=== PATIENT | female | born 1995 | race Caucasian/White ===

== ENCOUNTER 2018-02-04 17:16 | Emergency (ER) | payer BC, OTHER ==
[~2018-02-04] VITALS: Ht 154.9 cm; Wt 45.4 kg
[2018-02-04 17:26] VITALS: BP 126/70
== END 2018-02-04 18:08 | disposition left against medical advice (07) ==
LOC: ER 17:16
DX: N64.4 Mastodynia (principal); Z53.21 Procedure and treatment not carried out due to patient leaving prior to being seen by health care provider

== ENCOUNTER 2021-01-26 04:31 | Emergency (ER) | payer MEDICAID, OTHER ==
[~2021-01-26] VITALS: Ht 154.9 cm; Wt 49.9 kg
[2021-01-26 04:32] VITALS: BP 133/78
== END 2021-01-26 05:04 | disposition left against medical advice (07) ==
LOC: ER 04:31
DX: H92.01 Otalgia, right ear (principal); Z53.21 Procedure and treatment not carried out due to patient leaving prior to being seen by health care provider

== ENCOUNTER 2025-01-25 20:28 | Emergency (ER) | payer MEDICAID ==
[~2025-01-25] VITALS: Ht 154.9 cm; Wt 46.2 kg
--- NOTE | 2025-01-25 20:55 | ED.PDOC ---
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 Last week, patient s tarted having lower abdominal cramps followed by passage of blood clots(?). Bleeding would stop spontaneously and patient would be asymptomatic until few hours ago when patient would develop vaginal bleeding again (regular menstrual cycle ?) Chief Complaint: Vaginal Bleed Time Seen by MD: 20:54 Reviewed Notes: Nurses Notes Allergies: Coded Allergies: Sulfa Antibiotics (Verified Allergy, Unknown, 01/25/25) Information Source: Patient Mode of Arrival: Ambulatory Timing: Hours Bleeding Quality: Bright Red, Clotted Review of Systems REVIEW OF SYSTEMS: No fever, no chills, or fatigue HEENT: No sore throat, no earache, no congestion, no neck pain. Cardiac: No chest pain. No palpitations. Lungs: No shortness of breath, no cough. GI: No nausea, no vomiting, no diarrhea, no constipation, no abdominal pain : No dysuria, frequency, or urgency. No hematuria. (+) vaginal bleeding Musculoskeletal: No joint pain , no joint swelling, no extremity edema. Skin: No rash, no itching. Neuro: No headache, no dizziness, no weakness Vital Signs Vital Signs Date Time Temp Pulse Resp B/P (MAP) Pulse Ox O2 Delivery O2 Flow Rate FiO2 01/25/25 23:00 98.0 74 18 95/57 (70) 96 98.0 Physical Exam General: Awake, alert and oriented. No acute distress. Skin: Skin in warm, dry and intact. Appropriate color for ethnicity. Nailbeds pink with no cyanosis. HEENT: The head is normocephalic and atraumatic. Conjunctivae are clear without exudates or hemorrhage. Sclera is non-icteric. EOM are intact. No signs of nystagmus. Eyelids are normal in appearance without swelling or lesions. Oral mucosa is pink and moist Neck: The neck is supple with normal range of motion. No JVD. Cardiac: Heart rate and rhythm are normal. No murmurs, gallops, or rubs are auscultated. Respiratory: No signs of respiratory distress. Lung sounds are clear in all lobes bilaterally without rales, ronchi, or wheezes. Abdominal: Abdomen is soft, non-tender without distention. Bowel sounds are present and normoactive in all four quadrants. No CVA tenderness : Deferred Extremities: Upper and lower extremities are atraumatic in appearance without deformity or edema. Neurological: The patient is awake, alert and oriented to person, place, and time with normal speech. Speech is clear. There is no facial asymmetry. Psychiatric: Appropriate mood and affect. Good judgement and insight. No visual or auditory hallucinations. 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 Was a procedure done?: No Differential Diagnosis (SUPERVISOR [employer]ESS[employer]) Vaginal Bleeding: Blood Loss Anemia, Hormonal, Menorrhagia, Menometrorrhagia, Menstrual Bleeding, UTI X-Ray, Labs, Meds, VS Vital Signs Date Time Temp Pulse Resp B/P (MAP) Pulse Ox O2 Delivery O2 Flow Rate FiO2 01/25/25 23:00 98.0 74 18 95/57 (70) 96 98.0 01/25/25 20:36 97.9 111 16 112/75 (87) 99 Lab Test 01/25/25 20:54 01/25/25 20:42 Range/Units White Blood Count 8.5 4.4-10.8 10^3/uL Red Blood Count 4.75 4.0-5.20 10^6/uL Hemoglobin 13.9 12.2-16.2 g/dL Hematocrit 41.5 36.0-46.0 % Mean Corpuscular Volume 87.3 80.0-100.0 fL Mean Corpuscular Hemoglobin 29.2 28.0-32.0 pg Mean Corpuscular Hemoglobin Concent 33.4 32.0-36.0 g/dL Red Cell Distribution Width 12.9 11.8-14.3 % Platelet Count 396 140-450 10^3/uL Mean Platelet Volume 7.2 6.9-10.8 fL Neutrophils (%) (Auto) 65.2 37.0-80.0 % Lymphocytes (%) (Auto) 25.4 10.0-50.0 % Monocytes (%) (Auto) 6.7 0.0-12.0 % Eosinophils (%) (Auto) 2.0 0.0-7.0 % Basophils (%) (Auto) 0.7 0.0-2.0 % Neutrophils # (Auto) 5.5 1.6-8.6 10 ^3/uL Lymphocytes # (Auto) 2.2 0.4-5.4 10 ^3/uL Monocytes # (Auto) 0.6 0-1.3 10 ^3/uL Eosinophils # (Auto) 0.2 0-0.8 10 ^3/uL Basophils # (Auto) 0.1 0-0.2 10 ^3/uL Nucleated Red Blood Cells 0.1 % Sodium Level 140 136-145 mmol/L Potassium Level 3.9 3.5-5.1 mmol/L Chloride Level 104 98-107 mmol/L Carbon Dioxide Level 27 20-31 mmol/L Anion Gap 9 5-15 Blood Urea Nitrogen 6 L 9-23 mg/dL Creatinine 0.54 L 0.550-1.02 mg/dL Glomerular Filtration Rate Calc 127 >90 mL/min BUN/Creatinine Ratio 11.1 10.0-20.0 Serum Glucose 84 74-106 mg/dL Calcium Level 10.2 8.7-10.4 mg/dL Total Bilirubin 0.4 0.2-1.0 mg/dL Aspartate Amino Transferase (AST) 36 13-40 U/L Alanine Aminotransferase (ALT) 52 H 7-40 U/L Alkaline Phosphatase 63 46-116 U/L Total Protein 6.9 5.7-8.2 g/dL Albumin 4.4 3.2-4.8 g/dL Beta HCG, Quantitative 1495.6 H 1.5-4.2 mIU/mL Urine Color Light-brown Yellow Urine Clarity Turbid H Clear Urine pH 6.0 5.0-9.0 Urine Specific [place] 1.015 1.001-1.035 Urine Protein Trace H Negative Urine Ketones Trace Negative Urine Blood 2+ H Negative /uL Urine Nitrite Negative Negative Urine Bilirubin Negative Negative Urine Urobilinogen 2 H Negative mg/dL Urine Leukocyte Esterase 3+ Negative /uL Urine RBC 37 0 - 4 /hpf Urine WBC Clumps Present None Seen /hpf Urine Microscopic WBC 112 H 0-5 /HPF Urine Squamous Epithelial Cells Few <5 /hpf Urine Bacteria Many H None Seen /hpf Urine Mucus Few None Seen Urine Glucose Normal Normal mg/dL Urine Test Positive Negative Time of 1ST Reevaluation: 20:50 Reevaluation 1ST: Unchanged Patient Education/Counseling: Diagnosis, Treatment Family Education/Counseling: No Family Present Departure 1 Departure Time of Disposition: 00:38 Impression: Primary Impression: of unknown anatomic location Additional Impressions: Elevated serum hCG Vaginal bleeding Disposition: HOME / SELF CARE / HOMELESS Condition: Stable Additional Instructions: ED DISCHARGE INSTRUCTIONS Instructions: Please read all instructions provided in this packet carefully. Although you have been discharged from the Emergency Department, this does not mean that you have a "clean bill of health". No definitive diagnosis for your symptoms has been made today. It is possible that you are in the process of developing a serious illness. This is why you must return to the ED without fail if any new or worsening symptoms (especially if your symptoms include lightheadedness, heavy bleeding, fever, weakness, chest pain, trouble breathing, severe abdominal pain, fever, headache, confusion, trouble seeing, or trouble walking) It is also very important that you see a marketing operations analyst or primary care doctor w marzenain the next 3-5 days to have another level checked. If you are unable to get an appointment, return to the ED for a repeat level and ultrasound in 3-5 days. What is PUL? of unknown location (PUL) is when you have a positive urine or blood test, and the cannot be seen on ultrasound. When you have a PUL, it must be found. Your care team will decide if it will grow safely. Why we cannot see it on ultrasound? It is too early to see A person is having a miscarriage There is an ectopic What is an ectopic ? It is a that started outside the uterus. This can be life threatening It is never normal You will need close follow up with: Ultrasounds Blood work Visits with your care team Ectopic pregnancies happen most often inside the fallopian tube. It can also be called a tubal . Other places they can be found are: The cervix A scar An ovary The abdomen 2 out of 100 pregnancies will be outside of the uterus (ectopic). The cannot carry on because: They can be life threatening Cannot be a viable Cannot be moved to the uterus When found early, some can be treated with a medicine called methotrexate. You may need a minor surgery to remove the or your fallopian tube. Caring for yourself at home Until the is found, you should: Get pelvic rest (do not douche, use tampons, or have sex). Not take ibuprofen, Motrin, aspirin, or other NSAID medicines Take acetaminophen (Tylenol) as needed. Drink lots of water Take your medicine unless told by your care team Do not wait until the clinic is open. Call right away or go to your emergency room if you have: Heavy vaginal bleeding (soaking through a pad in less than 1 hour) Abdominal pain that is severe or gets worse Lightheadedness or fainting Follow-up Close follow-up is needed for a PUL A blood test. This test is known as a serum beta human chorionic gonadotrophin (HCG). It may be called a qaunt Return to get your second HCG 48 hours after this visit. Your HCG level should go up by about 66% in that time if: the is normal it is growing in your uterus An ultrasound in 3 to 5 days You need to return to have tests done. Comments 29-year-old female who presented to the emergency department with vaginal bleeding as well as passing of some clots from the vagina 2 weeks ago. She started worsening mild pelvic pain and bleeding this started again yesterday. No intrauterine visualized on ultrasound. Beta hCG is approximately 1400. Discussed with patient that this is possibly a of unknown location or miscarriage. Patient does not have a marketing operations analyst or PCP, she is advised to return to the emergency department within the next few days for repea t hCG level she is unable to get an appointment. She is advised of other return precautions. Patient is well-appearing, nontoxic, hemodynamically stable. She is felt stable for discharge home and to return for follow up. Extensive evaluation was performed in attempt to identify or rule out: (See differential diagnosis section) The following tests were ordered, and results were reviewed by me: (See diagnostic results section) The following test were independently interpreted by me: N/A I reviewed and agreed with the following test results read by other providers: N/A I reviewed the following notes from the pt's past medical encounters: N/A Additional information was gathered from interviewing the following independent historians: N/A Discussion of management or test interpretation with external physician/other qualified health rn palliative care: N/A Decision regarding hospitalization or escalation of hospital level of care: Risks and benefits of admission for further treatment of patient's condition was considered however due to patient's stable condition patient will be discharged to follow up closely or return to care for worsening of condition or inability to follow up. Critical Care Note Critical Care Time?: No Stability Stability form required: No Heart Score Heart Score: Heart Score Response (Comments) Value History N/A 0 EKG N/A 0 Age N/A 0 Risk Factors N/A 0 Troponin N/A 0 Total 0 I personally scribed for KEY CORTEZ MD ([email or web address]) on 01/25/25 at 20:55. Electronically submitted by Wagner Morgan ([employer]). I personally scribed for KEY CORTEZ MD ([email or web address]) on 01/25/25 at 21:05. Electronically submitted by Wagner Morgan ([employer]). KEY CORTEZ MD Jan 25, 2025 20:55
[2025-01-25 21:07] LABS: Basophils # (auto) 0.1 10 ^3/uL (0-0.2); Basophils % (auto) 0.7 % (0.0-2.0); Eosinophils # (auto) 0.2 10 ^3/uL (0-0.8); Hematocrit 41.5 % (36.0-46.0); Hemoglobin 13.9 g/dL (12.2-16.2); Lymphocytes # (auto) 2.2 10 ^3/uL (0.4-5.4); Lymphocytes % (auto) 25.4 % (10.0-50.0); Mean Corpuscular Hemoglobin 29.2 pg (28.0-32.0); Mean Corpuscular Hgb Conc. 33.4 g/dL (32.0-36.0); Mean Corpuscular Volume 87.3 fL (80.0-100.0); Monocytes # (auto) 0.6 10 ^3/uL (0-1.3); Monocytes % (auto) 6.7 % (0.0-12.0); Neutrophils # (auto) 5.5 10 ^3/uL (1.6-8.6); Neutrophils % (auto) 65.2 % (37.0-80.0); Nucleated Red Blood Cells % 0.1 %; Platelet Count (auto) 396 10^3/uL (140-450); Red Blood Cells 4.75 10^6/uL (4.0-5.20); Red Cell Distribution Width 12.9 % (11.8-14.3); White Blood Cell 8.5 10^3/uL (4.4-10.8)
[2025-01-25 21:21] LABS: Albumin 4.4 g/dL (3.2-4.8); Alkaline Phosphatase 63 U/L (46-116); Anion Gap 9 (5-15); Aspartate Aminotransferase 36 U/L (13-40); BUN/Creatinine Ratio 11.1 (10.0-20.0); Calcium 10.2 mg/dL (8.7-10.4); Carbon Dioxide 27 mmol/L (20-31); Chloride 104 mmol/L (98-107); Glucose 84 mg/dL (74-106); Potassium 3.9 mmol/L (3.5-5.1); Sodium 140 mmol/L (136-145); Total Protein 6.9 g/dL (5.7-8.2)
[2025-01-25 21:22] LABS: Bilirubin, Total 0.4 mg/dL (0.2-1.0)
[2025-01-25 21:24] LABS: Alanine Aminotransferase 52 U/L (7-40); Blood Urea Nitrogen 6 mg/dL (9-23)
[2025-01-25 21:28] LABS: Urine Bacteria MANY /hpf (None Seen); Urine Blood 2+ /uL (Negative); Urine Clarity Turbid (Clear); Urine Color Light-Brown (Yellow); Urine Mucus FEW (None Seen); Urine Protein, UAD TRACE (Negative); Urine Specific Gravity 1.015 (1.001-1.035); Urine Squamous Epithelial Cell FEW /hpf (<5); Urine Urobilinogen 2 mg/dL (Negative); Urine WBC 112 /HPF (0-5); Urine WBC Clumps PRESENT /hpf (None Seen)
[2025-01-25 23:00] VITALS: TEMP 98
--- NOTE | 2025-01-26 00:20 | DVH ---
OB ULTRASOUND <14 WEEKS: HISTORY: Pelvic Pain TECHNIQUE: Multiple real-time grayscale sonographic images of the pelvis with duplex Doppler color f low, spectral and M-mode analysis. TRANSDUCERS: TA (pateint denies TV exam) FINDINGS: The uterus measures 6 x 4 x 5 The cervix was not seen . Endometrial stripe measures 1.8 mm. Bilateral ovaries not visualized. IMPRESSION: No IUP noted. Please correlate with serial beta hCGs.
[2025-01-26 00:55] VITALS: BP 103/62; PULSE 85; RESP 16; O2SAT 99
== END 2025-01-26 01:00 | disposition home or self-care (01) ==
LOC: ER 20:28
DX: N93.9 Abnormal uterine and vaginal bleeding, unspecified (principal); R10.2 Pelvic and perineal pain; Z88.2 Allergy status to sulfonamides; Z32.01 Encounter for pregnancy test, result positive
CPT/HCPCS: 36415; 76801; 80053; 81001; 81025; 84702; 85025; 86850; 86900; 86901

== ENCOUNTER 2025-02-03 19:44 | Emergency (ER) | payer MEDICAID ==
[~2025-02-03] VITALS: Ht 154.9 cm; Wt 48.7 kg
[2025-02-03 20:47] LABS: Basophils # (auto) 0 10 ^3/uL (0-0.2); Basophils % (auto) 0.2 % (0.0-2.0); Eosinophils # (auto) 0.3 10 ^3/uL (0-0.8); Eosinophils % (auto) 2.9 % (0.0-7.0); Hematocrit 41.9 % (36.0-46.0); Hemoglobin 13.9 g/dL (12.2-16.2); Lymphocytes % (auto) 32.7 % (10.0-50.0); Mean Corpuscular Hemoglobin 29.2 pg (28.0-32.0); Mean Corpuscular Hgb Conc. 33.3 g/dL (32.0-36.0); Mean Corpuscular Volume 87.6 fL (80.0-100.0); Monocytes # (auto) 0.6 10 ^3/uL (0-1.3); Monocytes % (auto) 6.1 % (0.0-12.0); Neutrophils # (auto) 5.3 10 ^3/uL (1.6-8.6); Neutrophils % (auto) 58.1 % (37.0-80.0); Platelet Count (auto) 365 10^3/uL (140-450); Red Blood Cells 4.78 10^6/uL (4.0-5.20); Red Cell Distribution Width 12.8 % (11.8-14.3); White Blood Cell 9.2 10^3/uL (4.4-10.8)
[2025-02-03 20:51] LABS: Urine Amorphous Crystal FEW /hpf (None Seen); Urine Bacteria MANY /hpf (None Seen); Urine Blood Negative /uL (Negative); Urine Budding Yeast FEW /hpf (None Seen); Urine Clarity Turbid (Clear); Urine Color Yellow (Yellow); Urine Mucus FEW (None Seen); Urine Protein, UAD TRACE (Negative); Urine Specific Gravity 1.025 (1.001-1.035); Urine Squamous Epithelial Cell FEW /hpf (<5); Urine Urobilinogen 2 mg/dL (Negative); Urine WBC 28 /HPF (0-5); Urine pH 6.5 (5.0-9.0)
[2025-02-03 20:54] LABS: Alanine Aminotransferase 60 U/L (7-40); Albumin 4.2 g/dL (3.2-4.8); Alkaline Phosphatase 68 U/L (46-116); Anion Gap 5 (5-15); Aspartate Aminotransferase 43 U/L (13-40); BUN/Creatinine Ratio 11.7 (10.0-20.0); Bilirubin, Total 0.2 mg/dL (0.2-1.0); Blood Urea Nitrogen 7 mg/dL (9-23); Calcium 9.5 mg/dL (8.7-10.4); Carbon Dioxide 31 mmol/L (20-31); Chloride 104 mmol/L (98-107); Glucose 89 mg/dL (74-106); Potassium 3.5 mmol/L (3.5-5.1); Sodium 140 mmol/L (136-145); Total Protein 6.6 g/dL (5.7-8.2)
[2025-02-03 21:02] LABS: Cocaine Screen, Urine Neg (NEGATIVE); Opiate Scree,Urine Neg (NEGATIVE)
[2025-02-03] MEDS ORDERED: cefTRIAXone 1GM/50ML D5W 50 ML IV ONE (21:30)
[2025-02-03 21:41] LABS: Amphetamine Screen, Urine Pos (NEGATIVE); Barbiturate Scree,Urine Neg (NEGATIVE); Benzodiazephine Screen, Urine Neg (NEGATIVE); Phencyclidine Screen, Urine Neg (NEGATIVE)
[2025-02-03 21:42] LABS: Cannabinoid Screen, Urine Neg (NEGATIVE)
--- NOTE | 2025-02-03 22:34 | DVH ---
OB ULTRASOUND <14 WEEKS: HISTORY: vag bleed TECHNIQUE: Multiple real-time grayscale sonographic images of the pelvis with duplex Doppler color f low, spectral and M-mode analysis. TRANSDUCERS: C5-9 COMPARISON: US OB ULTRASOUND COMP LESS 14WKS on DOS: 01/25/25 FINDINGS: The uterus measures 6.0 x 3.4 x 2.5 cm Right ovary measures 4.3 cm with normal Doppler color flow. Complex cystic lesion is seen in the righ t ovary which measures up to 4.3 cm which is predominantly hyperechoic but anechoic centrally. Left ovary measures 3.1 cm with normal Doppler color flow. Simple cyst measures up to 1 cm No intrauterine seen at this time. IMPRESSION: 1. No intrauterine is seen at this time. 2. Complex cystic lesion is seen in the right ovary measuring up to 4.3 cm, possibly a hemorrhagic/pr oteinaceous cyst although ectopic can not be excluded.
--- NOTE | 2025-02-03 23:40 | ED.PDOC ---
CONSUMER LOAN SPECIALIST HPI Comments HPI: Poor Historian. HPI: * 29 y/o F presents for follow-up after being seen at ED on 01/25/25 for abnormal vaginal bleeding with large clot/mass passage. * Patient reports on this being her first . * She states on last ultrasound showing no baby with elevated HCG levels then. * Denies any current bleeding or any abdominal pain. * Admits to recent fentanyl and methamphetamine abuse, earlier, today. Vitals Temperature: 98.0F Respiratory rate: 14 SpO2: 100%RA Heart rate: 92 Blood pressure: 108/61 Past Medical History: irregular periods, genital herpes simplex virus , homelessness Past Surgical History: denies Social History: fentanyl and methamphetamine abuse, homeless for 8 years REVIEW OF SYSTEMS: CONSTITUTIONAL: Denies acute: fever, diaphoresis, chills, generalized weakness. HEAD: Denies acute: headache, photophobia Eyes: Denies acute: Double vision, vision loss, eye pain, eye discharge. EARS: Denies acute: tinnitus, hearing loss, ear discharge, ear pain, THROAT: Denies acute: sore throat, swelling, difficulty swallowing , pain with swallowing, change in voice. NECK: Denies acute: neck pain, neck swelling, stiff neck. HEART: Denies acute : chest pain, palpitations, LUNGS: Denies acute: SOB, wheezing, cough, hemoptysis ABDOMEN: Denies acute: abdominal pain, Nausea, Vomiting, diarrhea, melena , hematemesis, hematochezia SKIN: Denies acute: rash, redness, lesions, itchiness. EXTREMITIES: Denies acute: calf pain, numbness, tingling, weakness, denies pain in extremity. Denies acute: Low back pain. Neuro: Denies acute: focal neurological deficit, motor or sensory focal neurological deficit, tremors, seizure like activity, confusion, dizziness, change in mental status, loss of bowel or bladder function, cauda equina like symptoms. : Denies acute: dysuria, hematuria, flank pain, increase in urinary frequency. PSYCH: Denies acute: hallucination, suicidal ideation, homicidal ideation. FEMALE: Denies acute: abnormal vaginal bleeding, foul odor, unusual discharge. PHYSICAL EXAM: General: no acute distress, awake and alert. Head: normocephalic, atraumatic. Neck: supple, trachea is midline, no swelling. Throat: Normal phonation. Eyes:, no erythema, no purulent discharge, no proptosis, no icterus. Heart: regular rate, regular rhythm, no significant murmur appreciated. Lungs: no apparent respiratory distress, Able to speak in full sentences. No wheezing, no rhonchi, no crackles. No stridors Clear to auscultation bilaterally. Abdomen: non tender to palpation, non distended, soft, no guarding, no rebound, + bowel sounds. Neuro: Awake, Alert, oriented to name, self, situation, follows commands GCS=15. Speech is normal. Skin: no petechia, no purpura, no cyanosis, non-pale, not jaundice. Lower extremities: --no - Pitting edema no deformity, no focal swelling, no calf TTP. Makes eye contact. moves all four extremities. Face: no apparent facial droop. Ambulating in the ED independently. ED COURSE: Chief Complaint: Vaginal Bleed Time Seen by MD: 23:20 Reviewed Notes: Nurses Notes Allergies: Coded Allergies: Sulfa Antibiotics (Verified Allergy, Unknown, 01/25/25) Home Meds Active Scripts Cephalexin Monohydrate (Cephalexin) 500 Mg Cap, 500 MG PO Q8HR for 5 Days, #15 CAP Prov:BYRON MARTINS DO 02/03/25 Information Source: Patient Mode of Arrival: Ambulatory Past Medical History PAST MEDICAL HISTORY: Denies Surgical History: Denies all surgeries WINDING DEPARTMENT SUPERVISOR History: No Pertinent WINDING DEPARTMENT SUPERVISOR History Family History Family History: Reviewed,noncontributory to illness Social History Smoker: Non-Smoker Alcohol: Denies ETOH Use Drugs: Denies Drug Use Lives In: Home Was a procedure done? Was a procedure done?: No Differential Diagnosis (WINDING DEPARTMENT SUPERVISOR) Vaginal Bleeding: - Complete, - Incomplete, - Inevitable, - Missed, - Threatened, Abruptio Placentae, Blood Loss Anemia, Cervicitis, Dysmenorrhea, Ectopic , Hormonal, Menorrhagia, Menometrorrhagia, Menstrual Bleeding, Myomatous Uterus, PID, Placenta Previa, Precipitous Hct, Trauma, UTI, Vaginitis, Other (Differential diagnosis includes but not limited to DU B, menorrhea, metromenorrhagia, neoplasm, coagulopathy,, trauma, miscarriage, placenta previa, placental abruption, ) X-Ray, Labs, Meds, VS Vital Signs Date Time Temp Pulse Resp B/P (MAP) Pulse Ox O2 Delivery O2 Flow Rate FiO2 02/03/25 19:47 98.0 92 14 108/61 (77) 100 98.0 Lab Test 02/03/25 20:23 02/03/25 19:52 Range/Units White Blood Count 9.2 4.4-10.8 10^3/uL Red Blood Count 4.78 4.0-5.20 10^6/uL Hemoglobin 13.9 12.2-16.2 g/dL Hematocrit 41.9 36.0-46.0 % Mean Corpuscular Volume 87.6 80.0-100.0 fL Mean Corpuscular Hemoglobin 29.2 28.0-32.0 pg Mean Corpuscular Hemoglobin Concent 33.3 32.0-36.0 g/dL Red Cell Distribution Width 12.8 11.8-14.3 % Platelet Count 365 140-450 10^3/uL Mean Platelet Volume 7.4 6.9-10.8 fL Neutrophils (%) (Auto) 58.1 37.0-80.0 % Lymphocytes (%) (Auto) 32.7 10.0-50.0 % Monocytes (%) (Auto) 6.1 0.0-12.0 % Eosinophils (%) (Auto) 2.9 0.0-7.0 % Basophils (%) (Auto) 0.2 0.0-2.0 % Neutrophils # (Auto) 5.3 1.6-8.6 10 ^3/uL Lymphocytes # (Auto) 3.0 0.4-5.4 10 ^3/uL Monocytes # (Auto) 0.6 0-1.3 10 ^3/uL Eosinophils # (Auto) 0.3 0-0.8 10 ^3/uL Basophils # (Auto) 0 0-0.2 10 ^3/uL Nucleated Red Blood Cells 0.0 % Sodium Level 140 136-145 mmol/L Potassium Level 3.5 3.5-5.1 mmol/L Chloride Level 104 98-107 mmol/L Carbon Dioxide Level 31 20-31 mmol/L Anion Gap 5 5-15 Blood Urea Nitrogen 7 L 9-23 mg/dL Creatinine 0.60 0.550-1.02 mg/dL Glomerular Filtration Rate Calc 124 >90 mL/min BUN/Creatinine Ratio 11.7 10.0-20.0 Serum Glucose 89 74-106 mg/dL Calcium Level 9.5 8.7-10.4 mg/dL Total Bilirubin 0.2 0.2-1.0 mg/dL Aspartate Amino Transferase (AST) 43 H 13-40 U/L Alanine Aminotransferase (ALT) 60 H 7-40 U/L Alkaline Phosphatase 68 46-116 U/L Total Protein 6.6 5.7-8.2 g/dL Albumin 4.2 3.2-4.8 g/dL Beta HCG, Quantitative 591.0 H 1.5-4.2 mIU/mL Urine Color Yellow Yellow Urine Clarity Turbid H Clear Urine pH 6.5 5.0-9.0 Urine Specific [place] 1.025 1.001-1.035 Urine Protein Trace H Negative Urine Ketones Trace Negative Urine Blood Negative Negative /uL Urine Nitrite 2+ H Negative Urine Bilirubin Negative Negative Urine Urobilinogen 2 H Negative mg/dL Urine Leukocyte Esterase 1+ Negative /uL Urine RBC 3 0 - 4 /hpf Urine Microscopic WBC 28 H 0-5 /HPF Urine Squamous Epithelial Cells Few <5 /hpf Urine Amorphous Crystals Few None Seen /hpf Urine Bacteria Many H None Seen /hpf Urine Mucus Few None Seen Urine Yeast (Budding) Few None Seen /hpf Urine Glucose Normal Normal mg/dL Urine Opiates Screen Neg NEGATIVE Urine Fentanyl Screen Pos NEGATIVE Urine Barbiturates Screen Neg NEGATIVE Urine Phencyclidine Screen Neg NEGATIVE Urine Amphetamines Screen Pos NEGATIVE Urine Benzodiazepines Screen Neg NEGATIVE Urine Cocaine Screen Neg NEGATIVE Urine Cannabinoids Screen Neg NEGATIVE [place] [address] Ph: [phone] DIAGNOSTIC IMAGING Diagnostic Imaging Report : [id number] Signed PATIENT: SARI CHAVEZ ACCT: [id number] UNIT: [id number] : 1995 LOC: ER ROOM / BED: / AGE / SEX: 29 / F ADM STATUS: REG ER SERVICE 02 ORDERING PHYSICIAN: BYRON MARTINS DO PROCEDURE(s): OB4US - OB ULTRASOUND COMP LESS 14WKS REASON: vag bleed ORDER NUMBER(s): [id number], ACCESSION NUMBER(s): [id number] OB ULTRASOUND <14 WEEKS: HISTORY: vag bleed TECHNIQUE: Multiple real-time grayscale sonographic images of the pelvis with duplex Doppler color flow, spectral and M-mode analysis. TRANSDUCERS: C5-9 COMPARISON: US OB ULTRASOUND COMP LESS 14WKS on DOS: 01/25/25 FINDINGS: The uterus measures 6.0 x 3.4 x 2.5 cm Right ovary measures 4.3 cm with normal Doppler color flow. Complex cystic lesion is seen in the right ovary which measures up to 4.3 cm which is predominantly hyperechoic but anechoic centrally. Left ovary measures 3.1 cm with normal Doppler color flow. Simple cyst measures up to 1 cm No intrauterine seen at this time. IMPRESSION: 1. No intrauterine is seen at this time. 2. Complex cystic lesion is seen in the right ovary measuring up to 4.3 cm, possibly a hemorrhagic/proteinaceous cyst although ectopic can not be excluded. ATED BY: ELISA ACOSTA MD DICTATED DATE/TIME: 02/03/252231 SIGNED BY: ELISA ACOSTA MD SIGNED DATE/TIME: 02/03/252231 CC: Time of 1ST Reevaluation: 22:45 Reevaluation 1ST: Unchanged Patient Education/Counseling: Diagnosis, Treatment Family Education/Counseling: No Family Present Comments Patient presented with the above HPI. CONSUMER LOAN SPECIALIST workup was initiated. patient was found with the above mentioned diagnosis. the following medications were ordered: please refer to order lists of meds and tests obtained by myself Dr. Martins. Patient ED course and VS have been stabilized. Patient has been reassessed in the ED and remained in a stable condition. Pertinent incidental findings were discussed with the patient and/or family. Patient/family voices understanding and is agreeable with plan. Patient has been observed in the ED adequate length of time to insure impro vement/stability. Escalation of care considered: Consideration of escalation to observation or admission Patient was DISCHARGED home in a stable condition. All the reports of any imaging studies that were ordered by myself were reviewed by myself. Departure 1 Departure Time of Disposition: 23:57 Impression: Primary Impression: Threatened Additional Impressions: Miscarriage Ovarian cyst UTI (urinary tract infection) during Polysubstance abuse Disposition: HOME / SELF CARE / HOMELESS Condition: Stable Additional Instructions: Additional discharge instructions: You MUST follow-up with your primary care/family doctor in 1 to 2 days. If you are unable to see your primary care/family doctor, please return to our emergency room for re-assessment and re-evaluation in 1 to 2 days. Return to the emergency room here in our facility or to the nearest ER POP if your symptoms change or worsen. CONSULTATIONS: you MUST Follow-up for consultation as soon as possible with: Gynjuan c doctor in 1-2 days. Please call for appointment. You MUST call the consultants office yourself to make an appointment. You may need to arrange that through your insurance and/or your primary/family doctor. If you are unable to see the advertising sales consultant in 1 to 2 days, you must return to our emergency room (or any other ER of your choice) for re-assessment and re- evaluation. Adequate fluid hydration. Pelvic rest. You are likely undergoing a miscarriage. However we must repeat the tests: Repeat beta-hCG levels in 48-72 hours. Repeat ultrasound again in 4-5 days. Seek help regarding your drug addiction. 01/25/2025 [facility] 02/03/2025 [facility] [place] Below is a copy of your radiological report for follow up: [place] [address] Ph: [phone] DIAGNOSTIC IMAGING Diagnostic Imaging Report : [id number] Signed PATIENT: SARI CHAVEZ ACCT: [id number] UNIT: [id number] : 1995 LOC: ER ROOM / BED: / AGE / SEX: 29 / F ADM STATUS: REG ER SERVICE 02 ORDERING PHYSICIAN: BYRON MARTINS DO PROCEDURE(s): OB4US - OB ULTRASOUND COMP LESS 14WKS REASON: vag bleed ORDER NUMBER(s): [id number], ACCESSION NUMBER(s): [id number] OB ULTRASOUND <14 WEEKS: HISTORY: vag bleed TECHNIQUE: Multiple real-time grayscale sonographic images of the pelvis with duplex Doppler color flow, spectral and M-mode analysis. TRANSDUCERS: C5-9 COMPARISON: US OB ULTRASOUND COMP LESS 14WKS on DOS: 01/25/25 FINDINGS: The uterus measures 6.0 x 3.4 x 2.5 cm Right ovary measures 4.3 cm with normal Doppler color flow. Complex cystic lesion is seen in the right ovary which measures up to 4.3 cm which is predominantly hyperechoic but anechoic centrally. Left ovary measures 3.1 cm with normal Doppler color flow. Simple cyst measures up to 1 cm No intrauterine seen at this time. IMPRESSION: 1. No intrauterine is seen at this time. 2. Complex cystic lesion is seen in the right ovary measuring up to 4.3 cm, possibly a hemorrhagic/proteinaceous cyst although ectopic can not be excluded. ATED BY: ELISA ACOSTA MD DICTATED DATE/TIME: 02/03/252231 SIGNED BY: ELISA ACOSTA MD SIGNED DATE/TIME: 02/03/252231 CC: e-Prescriptions Cephalexin Monohydrate (Cephalexin) 500 Mg Cap 500 MG PO Q8HR for 5 Days, #15 CAP Prov: BYRON MARTINS DO 02/03/25 Discharged With: Self Critical Care Note Critical Care Time?: No I personally scribed for BYRON MARTINS DO ([email or web address]) on 02/03/25 at 23:40. Electronically submitted by Trent Walton ([email or web address]). I personally scribed for BYRON MARTINS DO ([email or web address]) on 02/04/25 at 00:13. Electronically submitted by Trent Walton ([email or web address]). BYRON MARTINS DO Feb 03, 2025 23:40
[2025-02-03] MEDS ORDERED: CEPH500C PO (23:59)
[2025-02-04 02:29] VITALS: BP 96/67; PULSE 83; TEMP 98.8
[2025-02-04 02:36] VITALS: RESP 16; O2SAT 97
[2025-02-04] MEDS: cefTRIAXone SOD 1,000 MG VL IM ONE (02:40)
== END 2025-02-04 02:49 | disposition home or self-care (01) ==
LOC: ER 19:44
DX: O20.0 Threatened abortion (principal); O34.81 Maternal care for other abnormalities of pelvic organs, first trimester; O23.591 Infection of other part of genital tract in pregnancy, first trimester; O44.01 Complete placenta previa NOS or without hemorrhage, first trimester; N83.291 Other ovarian cyst, right side; N92.1 Excessive and frequent menstruation with irregular cycle; N39.0 Urinary tract infection, site not specified; F15.10 Other stimulant abuse, uncomplicated; Z59.00 Homelessness unspecified; Z88.2 Allergy status to sulfonamides; Z3A.01 Less than 8 weeks gestation of pregnancy; Z79.899 Other long term (current) drug therapy
CPT/HCPCS: 36415; 76801; 76817; 80053; 80307; 81001; 84702; 85025; 86850; 86900; 86901; 96372; 99285; J0696

== ENCOUNTER → 2025-02-03 | Emergency (ER) | payer MEDICAID ==
[~2025-02-03] MED LIST: CEPH500C PO
== END | disposition left against medical advice (07) ==
LOC: ER 15:52
DX: Z00.00 Encounter for general adult medical examination without abnormal findings (principal); Z53.21 Procedure and treatment not carried out due to patient leaving prior to being seen by health care provider